=== PATIENT | male | born 1950 | race Caucasian/White ===

== ENCOUNTER 2018-05-23 15:14 | Emergency (ER) | payer MEDICARE, BC ==
[2018-05-23] MEDS ORDERED: NORMAL SALINE 1000 ML 1,000 ML IV ONE ×2 (15:54→17:46)
--- NOTE | 2018-05-23 15:54 | ER Document Report ---
ED Medical Screen (RME) - General Chief Complaint: Dizziness Stated Complaint: DIZZINESS,BLURRED VISION Time Seen by Provider: 05/23/18 15:47 Mode of Arrival: Ambulatory Information source: Patient Notes: 67-year-old male with COPD, hypertension, hyperlipidemia, previous TIA presents with 5 days of nausea, vomiting and diarrhea. Patient and states that patient has had multiple episodes of vomiting and diarrhea over the last 5 days. He has been unable to tolerate any food or fluids. Patient states that 1 day ago he experienced significantly blurred vision, dizziness. He denies any recent illness, chest pain, shortness of breath. He was seen by his primary care physician for this and was given IV fluids for his low blood pressure. Patient denies sick contacts, recent antibiotic use and recent travel. I have greeted and performed a rapid initial assessment of this patient. A comprehensive ED assessment and evaluation of the patient including analysis of labs and imaging ( if obtained) and completion of medical decision making will be conducted by an additional ED provider. PHYSICAL EXAMINATION: GENERAL: Well-appearing, well-nourished and in no acute distress. HEAD: Atraumatic, normocephalic. EYES: Pupils equal round extraocular movements intact, conjunctiva are normal. ENT: Nares patent NECK: Normal range of motion LUNGS: No respiratory distress Musculoskeletal: Normal range of motion NEUROLOGICAL: Normal speech, normal gait. PSYCH: Normal mood, normal affect. SKIN: Warm, Dry, normal turgor, no rashes or lesions noted. TRAVEL OUTSIDE OF THE [place] IN LAST 30 DAYS: No - Related Data Allergies/Adverse Reactions: No Known Allergies Allergy (Unverified 05/23/18 15:19) Physical Exam - Vital signs Vitals: Temp Pulse Resp BP Pulse Ox 98.6 F 76 20 84/50 L 95 05/23/18 15:34 05/23/18 15:34 05/23/18 15:34 05/23/18 15:34 05/23/18 15:34 Course - Vital Signs Vital signs: Temp Pulse Resp BP Pulse Ox 98.6 F 76 20 84/50 L 95 05/23/18 15:34 05/23/18 15:34 05/23/18 15:34 05/23/18 15:34 05/23/18 15:34
[2018-05-23 16:14] LABS: ABSOLUTE LYMPHOCYTES (AUTO) 1.1 10^3/uL (0.5-4.7); ABSOLUTE MONOCYTES (AUTO) 1.3 10^3/uL (0.1-1.4); ABSOLUTE NEUT (AUTO) 6.3 10^3/uL (1.7-8.2); BASOPHILS % (AUTO) 0.3 % (0-2); EOSINOPHILS % (AUTO) 0.3 % (0-6); HEMOGLOBIN 14.9 g/dL (13.5-17.0); LYMPHOCYTES % (AUTO) 12.4 % (13-45); MEAN CORPUSCULAR HEMOGLOBIN 32.3 pg (27.0-33.4); MEAN CORPUSCULAR HGB CONC 34.6 g/dL (32.0-36.0); MEAN CORPUSCULAR VOLUME 93 fl (80-97); MONOCYTES % (AUTO) 14.8 % (3-13); PLATELET COUNT 211 10^3/uL (150-450); RED CELL DISTRIBUTION WIDTH 13.5 % (11.5-14.0); SEGMENTED NEUTROPHILS % (AUTO) 72.2 % (42-78); TOTAL CELLS COUNTED % (AUTO) 100 %; WHITE BLOOD COUNT 8.7 10^3/uL (4.0-10.5)
--- NOTE | 2018-05-23 16:43 | ER Document Report ---
ED General - General Chief Complaint: Dizziness Stated Complaint: DIZZINESS,BLURRED VISION Time Seen by Provider: 05/23/18 15:47 Mode of Arrival: Ambulatory Information source: Patient Notes: 67-year-old male presents emergency department with complaints of nausea, vomiting, diarrhea for the last 5 days. Patient states that he followed up with his primary care physician 2 days ago and was given fluids while in the office. Patient was given a prescription for Zofran. He states he has been taking this medication but does not feel any better. Patient states that his blood pressure was reading low and his primary care physician's office and is told to hold his hypertensive medication. Patient states that he is not feeling any better. Yesterday he experienced some light headedness and blurred vision. Patient states that the symptoms have resolved. He is currently just feeling nauseated and continues to have diarrhea. He denies any chest pain, shortness of breath, fever, chills, vision changes, speech changes, numbness, tingling, weakness, dysuria, hematuria, hematochezia, melena. Patient is having abdominal pain. He describes it as a diffuse cramping sensation. No radiation of the pain. No alleviating or exacerbating factors. TRAVEL OUTSIDE OF THE [place] IN LAST 30 DAYS: No - HPI Onset: Other - 5 days Onset/Duration: Gradual Severity: Mild Pain Level: 1 Associated symptoms: Diarrhea, Nausea, Vomiting Exacerbated by: Denies Relieved by: Denies Similar symptoms previously: No Recently seen / treated by doctor: Yes - Related Data Allergies/Adverse Reactions: No Known Allergies Allergy (Verified 05/23/18 16:03) Past Medical History - General Information source: Patient - Social History Smoking Status: Never Smoker Chew tobacco use (# tins/day): No Frequency of alcohol use: None Drug Abuse: None Family History: Reviewed & Not Pertinent Patient has suicidal ideation: No Patient has homicidal ideation: No - Past Medical History Cardiac Medical History: Reports: Hx Hypercholesterolemia Pulmonary Medical History: Reports: Hx COPD Renal/ Medical History: Denies: Hx Peritoneal Dialysis Review of Systems - Review of Systems Constitutional: Weakness EENT: No symptoms reported Cardiovascular: No symptoms reported Respiratory: No symptoms reported Gastrointestinal: Diarrhea, Nausea, Vomiting Genitourinary: No symptoms reported Male Genitourinary: No symptoms reported Musculoskeletal: No symptoms reported Skin: No symptoms reported Hematologic/Lymphatic: No symptoms reported Neurological/Psychological: No symptoms reported Physical Exam - Vital signs Vitals: Temp Pulse Resp BP Pulse Ox 98.6 F 76 20 84/50 L 95 05/23/18 15:34 05/23/18 15:34 05/23/18 15:34 05/23/18 15:34 05/23/18 15:34 Interpretation: Normal - Notes Notes: PHYSICAL EXAMINATION: GENERAL: Well-appearing, well-nourished and in no acute distress. HEAD: Atraumatic, normocephalic. EYES: Pupils equal round and reactive to light, extraocular movements intact, sclera anicteric, conjunctiva are normal. ENT: Nares patent, oropharynx clear without exudates. Moist mucous membranes. NECK: Normal range of motion, supple without lymphadenopathy LUNGS: Breath sounds clear to auscultation bilaterally and equal. No wheezes rales or rhonchi. HEART: Regular rate and rhythm without murmurs ABDOMEN: Soft, nontender, nondistended abdomen. No guarding, no rebound. No masses appreciated. Musculoskeletal: Normal range of motion, no pitting or edema. No cyanosis. NEUROLOGICAL: Cranial nerves grossly intact. Normal speech, normal gait. Normal sensory, motor exams PSYCH: Normal mood, normal affect. SKIN: Warm, Dry, normal turgor, no rashes or lesions noted. Course - Re-evaluation Re-evalutation: 05/23/18 21:41 Labs and imaging obtained. Patient has elevated creatinine of 11.62. BUN is 77. Patient continues to have low blood pressure despite fluid resuscitation. ABG shows metabolic acidosis. pH of 7.12. Will hold giving bicarb at this time as the pH is 7.1. Patient unable to urinate. Isidro catheter placed. Only 50cc of urine obtained. Patient has had 3L of fluids in. CT abd/pel ordered for the patient's crampy abdominal pain and hypotension. No focal tenderness to palpation of the abdomen. CT shows 4cm infrarenal AAA. I discussed the results with the patient. He denies a history of renal failure or AAA. I discussed admission with the patient. He prefers transfer to [facility] as this is closer to where he lives. I contacted [facility] and spoke with Dr. Phoenix, vascular surgery. He will just monitor the AAA. Does not feel the patient requires transfer for the AAA. I told him that the patient has new onset renal failure and is requesting transfer to [place]. He recommended talking with the hospitalist for admission. I spoke with Dr. Dumont. He's agreeable with transfer. Discussed transportation with family. They prefer flight. Patient's pressure still low after 4L of fluids. Levophed ordered. Will contact flight for transportation. 05/23/18 23:13 Patient re-evaluted prior to transfer. Blood pressure 96/47. Patient has no current complaints. - Vital Signs Vital signs: Temp Pulse Resp BP Pulse Ox 98.6 F 76 16 85/48 L 95 05/23/18 15:34 05/23/18 15:34 05/23/18 22:31 05/23/18 22:31 05/23/18 22:31 - Laboratory Result Diagrams: 05/23/18 15:55 05/23/18 16:43 Laboratory results interpreted by me: 05/23/18 05/23/18 05/23/18 15:55 15:55 16:43 Lymphocytes % 12.4 L Monocytes % 14.8 H Carbonic Acid ABG pH ABG pCO2 ABG HCO3 ABG Total CO2 Sodium 133.7 L Chloride 97 L Carbon Dioxide 13 L Anion Gap 24 H BUN 77 H Creatinine 11.62 H Est GFR ( Amer) 5 L Est GFR (Non-Af Amer) 4 L Calcium 6.5 L* AST 13 L ALT 15 L Creatine Kinase 238 H CK-MB (CK-2) 4.62 H Lipase 367.2 H Urine Protein Urine Glucose (UA) Urine Blood Ur Leukocyte Esterase 05/23/18 05/23/18 19:29 20:34 Lymphocytes % Monocytes % Carbonic Acid 0.85 L ABG pH 7.12 L* ABG pCO2 28.4 L ABG HCO3 9.1 L ABG Total CO2 10.0 L Sodium Chloride Carbon Dioxide Anion Gap BUN Creatinine Est GFR ( Amer) Est GFR (Non-Af Amer) Calcium AST ALT Creatine Kinase CK-MB (CK-2) Lipase Urine Protein 100 H Urine Glucose (UA) 50 H Urine Blood LARGE H Ur Leukocyte Esterase MODERATE H - EKG Interpretation by Me Additional EKG results interpreted by me: 05/23/18 16:43 EKG: Ventricular rate 70, AK interval 164, QRS duration 90, QTc 480, normal sinus rhythm, no ischemic changes. Discharge - Discharge Clinical Impression: Metabolic acidosis, AAA (abdominal aortic aneurysm) Acute renal failure Qualifiers: Acute renal failure type: unspecified Qualified Code(s): N17.9 - Acute kidney failure, unspecified Condition: Serious Disposition: [facility]
[2018-05-23] MEDS ORDERED: ONDANSETRON 4 MG TAB.RAPDIS PO ONE (16:49)
[2018-05-23 16:51] LABS: CREATINE KINASE MB 4.62 ng/mL (<4.55); TROPONIN I 0.018 ng/mL
[2018-05-23] MEDS: NORMAL SALINE 1000 ML 1,000 ML IV PRN ×2 (17:00→18:30)
[2018-05-23 17:15] LABS: ALANINE AMINOTRANSFERASE 15 U/L (21-72); ALBUMIN 3.7 g/dL (3.5-5.0); ALKALINE PHOSPHATASE 58 U/L (38-126); ASPARTATE AMINO TRANSFERASE 13 U/L (17-59); BILIRUBIN,DIRECT 0.4 mg/dL (0.0-0.4); BILIRUBIN,TOTAL 0.4 mg/dL (0.2-1.3); BLOOD UREA NITROGEN 77 mg/dL (7-20); CREATINE KINASE 238 U/L (55-170); GLUCOSE 76 mg/dL (75-110); LIPASE 367.2 U/L (23-300); TOTAL PROTEIN 6.6 g/dL (6.3-8.2)
[2018-05-23 17:20] LABS: CARBON DIOXIDE 13 mmol/L (22-30); CHLORIDE 97 mmol/L (98-107); SODIUM 133.7 mmol/L (137-145)
[2018-05-23 17:25] LABS: CALCIUM 6.5 mg/dL (8.4-10.2)
[2018-05-23 17:26] LABS: ANION GAP 24 (5-19)
--- NOTE | 2018-05-23 19:23 | RADIOLOGY REPORT (SQ) ---
EXAM DESCRIPTION: CT ABD/PELVIS NO ORAL OR IV COMPLETED DATE/TIME: 05/23/2018 6:59 pm REASON FOR STUDY: diffuse abdominal pain COMPARISON: None. TECHNIQUE: CT scan of the abdomen and pelvis performed without intravenous or oral contrast. Images reviewed with lung, soft tissue, and bone windows. Reconstructed coronal and sagittal MPR images revi ewed. All images stored on PACS. All CT scanners at this facility use dose modulation, iterative reconstruction, and/or weight based d osing when appropriate to reduce radiation dose to as low as reasonably achievable (ALARA). [facility]: Dose Right [facility]: CareDose [facility]: Dose Right [facility]: Teradose 4D [facility]: [employer] RADIATION DOSE: CT Rad equipment meets quality standard of care and radiation dose reduction techniq ues were employed. CTDIvol: 15.4 mGy. DLP: 826 mGy-cm.mGy. LIMITATIONS: None. FINDINGS: LOWER CHEST: No significant findings. No nodules or infiltrates. NON-CONTRASTED LIVER, SPLEEN, ADRENALS: Evaluation limited by lack of IV contrast. No identified sign ificant masses. PANCREAS: No masses. No peripancreatic inflammatory changes. GALLBLADDER: No identified stones by CT criteria. No inflammatory changes to suggest cholecystitis. RIGHT KIDNEY AND URETER: No suspicious masses. Assessment limited by lack of IV contrast. No signif icant calcifications. No hydronephrosis or hydroureter. LEFT KIDNEY AND URETER: No suspicious masses. Assessment limited by lack of IV contrast. No signifi cant calcifications. No hydronephrosis or hydroureter. AORTA AND RETROPERITONEUM: 4 cm infrarenal abdominal aortic aneurysm. No retroperitoneal masses or ad enopathy. BOWEL AND PERITONEAL CAVITY: Sigmoid diverticulosis. No obvious masses or inflammatory changes. No f ree fluid. APPENDIX: Normal. PELVIS, BLADDER, AND ABDOMINAL WALL:No abnormal masses. No free fluid. Bladder normal. BONES: No acute findings. OTHER: No other significant finding. IMPRESSION: 4 cm infrarenal abdominal aortic aneurysm. No acute inflammatory changes in the abdomen or pelvis. Sigmoid diverticulosis. COMMENT: Quality ID # [id number]: Final reports with documentation of one or more dose reduction techniques (e.g., Automated exposure control, adjustment of the mA and/or kV according to patient size, use of iterative reconstruction technique) TECHNICAL DOCUMENTATION: JOB ID: [id number] [place]-72 2010 [employer]- All Rights Reserved Reading location - IP/workstation name: [email or web address] [email or web address]
[2018-05-23] MEDS ORDERED: DEXTROSE 5%-WATER 250 ML with NOREPINEPHRINE BITARTRATE 4 MG IV PRN ×2 (19:37)
[2018-05-23] MEDS ORDERED: NOREPINEPHRINE BITARTRATE INJ/PF 4 MG/4 ML SDV IV ONE (19:49)
[2018-05-23 19:57] LABS: AMORPHOUS SEDIMENT,URINE TRACE /HPF; APPEARANCE,URINE CLOUDY; BILIRUBIN,URINE NEGATIVE (NEGATIVE); COLOR,URINE AMBER; GLUCOSE, URINE 50 mg/dL (NEGATIVE); KETONES,URINE NEGATIVE (NEGATIVE); LEUKOCYTE ESTERASE,URINE MODERATE (NEGATIVE); NITRITE,URINE NEGATIVE (NEGATIVE); PROTEIN,URINE 100 mg/dL (NEGATIVE); URINE SPECIFIC GRAVITY 1.019; UROBILINOGEN,URINE NEGATIVE mg/dL (<2.0)
[2018-05-23 21:30] LABS: ARTERIAL BLOOD BASE EXCESS -18.8 mmol/L; ARTERIAL BLOOD FIO2 21%; ARTERIAL BLOOD H2CO3 0.85 mmol/L (1.05-1.35); ARTERIAL BLOOD HCO3 9.1 mmol/L (20-26); ARTERIAL BLOOD O2 SATURATION 94.6 % (94-98); ARTERIAL BLOOD PCO2 28.4 mmHg (35-45)
[2018-05-23 21:32] LABS: ARTERIAL BLOOD PH 7.12 (7.35-7.45)
[2018-05-23 22:37] VITALS: BP 85/48
--- NOTE | 2018-05-24 00:50 | EKG REPORT ---
SEVERITY:- BORDERLINE ECG - SINUS RHYTHM ATRIAL PREMATURE COMPLEX BORDERLINE PROLONGED QT INTERVAL : Confirmed by: Gia Blanco MD 24-May-2018 00:49:29
== END 2018-05-23 23:22 | disposition short-term general hospital (02) ==
LOC: ER 15:14
DX: E87.2 Acidosis (principal); I71.4 Abdominal aortic aneurysm, without rupture; N17.9 Acute kidney failure, unspecified; I95.9 Hypotension, unspecified; R11.2 Nausea with vomiting, unspecified; R19.7 Diarrhea, unspecified; R42 Dizziness and giddiness; H53.8 Other visual disturbances; R10.9 Unspecified abdominal pain; J44.9 Chronic obstructive pulmonary disease, unspecified; I10 Essential (primary) hypertension; Z79.899 Other long term (current) drug therapy
CPT/HCPCS: 93005; 99285; 96360; 96361; 51701; 36415; 87040; 82553; 82962; 82803; 82550; 83690; 85025; 80053; 81001; 84484; 83605; 74176; 93010; J7030